=== PATIENT | female | born 1980 | race Caucasian/White ===

== ENCOUNTER 2019-03-05 01:24 | Emergency (ER) | payer OTHER ==
[~2019-03-05] VITALS: Ht 165.1 cm; Wt 65.8 kg
[~2019-03-05 01:24] MED LIST: ALLEGRA ALLERG180 MG PO; AZO CRANBERRY1 EACH PO; CIPRO250 M1 PO; CLONAZEPAM 0.50.5 M1 PO; FLOMAX0.4 MG PO; FLONASE 0.05%50 MCG NASAL; HYDROCODONE-AP1 EAC6 PO; IBUPROFEN 800800 M1 PO; ONDANSETRON HCL4 M2 PO; SUDAFED 12 HOU120 MG PO
[2019-03-05] MEDS ORDERED: ALLEGRA ALLERGY60 MG PO (01:35)
[2019-03-05] MEDS ORDERED: FLONASE 0.05%50 MCG NASAL (01:35)
[2019-03-05] MEDS ORDERED: PSEUDOEPHEDRIN120 M1 PO (01:35)
[2019-03-05 02:26] VITALS: BP 132/79
== END 2019-03-05 02:26 | disposition home or self-care (01) ==
LOC: M.ERS 01:24
DX: S81.812A Laceration without foreign body, left lower leg, initial encounter (principal); F41.9 Anxiety disorder, unspecified; Z88.1 Allergy status to other antibiotic agents; Z88.2 Allergy status to sulfonamides; W26.8XXA Contact with other sharp object(s), not elsewhere classified, initial encounter; Y93.89 Activity, other specified; Y92.89 Other specified places as the place of occurrence of the external cause; Y99.8 Other external cause status